=== PATIENT | female | born 1960 | race Caucasian/White ===

== ENCOUNTER 2023-09-19 19:14 | Observation (INO) | payer MEDICARE, OTHER ==
[~2023-09-19] VITALS: Ht 167.6 cm; Wt 75.8 kg
[2023-09-19 19:48] LABS: Source, Urine Clean Catch
[2023-09-19 19:57] LABS: Bilirubin, Urine Neg (Neg); Blood, Urine Neg (Neg); Glucose Qualitative, Urine Neg (Neg); Ketones, Urine Neg (Neg); Leukocyte Esterase, Urine Neg (Neg); Nitrite, Urine Neg (Neg); Protein, Urine 1+ (Neg); Urobilinogen, Urine NORM (Normal)
[2023-09-19 19:59] LABS: Appearance, Urine Clear (Clear); Color, Urine Pale Yellow (P-Yellow)
[2023-09-19 20:07] LABS: BASOPHILS PERCENT AUTO 1 % (0-2); EOSINOPHILS ABSOLUTE AUTO 0.12 K/mm3 (0.00-0.68); EOSINOPHILS PERCENT AUTO 1 % (0-6); Hematocrit 45.5 % (33.0-51.0); Hemoglobin 15.9 g/dL (11.5-16.0); IMMATURE GRAN ABSOLUTE AUTO 0.06 K/mm3 (0.00-0.10); IMMATURE GRAN PERCENT AUTO 0 % (0-1); LYMPHOCYTES ABSOLUTE AUTO 6.18 K/mm3 (0.84-5.20); LYMPHOCYTES PERCENT AUTO 34 % (21-46); MONOCYTES ABSOLUTE AUTO 1.06 K/mm3 (0.16-1.47); MONOCYTES PERCENT AUTO 6 % (4-13); Mean Corpuscular HGB 30.9 pg (26.0-34.0); Mean Corpuscular HGB Conc 34.9 g/dL (31.5-36.5); Mean Corpuscular Volume 88 fL (80-100); Mean Platelet Volume 9.5 fL (9.1-12.4); NEUTROPHILS ABSOLUTE AUTO 10.53 K/mm3 (1.96-9.15); NEUTROPHILS PERCENT AUTO 58 % (41-73); Platelet Count 382 K/mm3 (150-400); RDW Coefficient Variation 12.9 % (11.7-14.2); RDW Standard Deviation 42.5 fL (35.1-46.3); Red Blood Cell Count 5.15 M/mm3 (3.80-5.20); White Blood Cell Count 18.05 K/mm3 (4.00-11.30)
[2023-09-19 20:27] LABS: U Amphetamine Screen Not Detected; U Barbituate Screen Not Detected; U Benzodiazapine Screen Not Detected; U Buprenorphine Screen Not Detected; U Cannabinoids Screen DETECTED; U Cocaine Screen Not Detected; U Methadone Screen Not Detected; U Methamphetamine Screen Not Detected; U Opiates Screen Not Detected; U Oxycodone Screen Not Detected; U Phencyclidine Screen Not Detected
[2023-09-19 20:33] LABS: Ethanol (Alcohol), Blood, Med 289 mg/dL; Salicylate 7.1 mg/dL (2.8-20.0)
[2023-09-19 20:34] LABS: Acetaminophen, Random <2.0 ug/mL (10.0-30.0); Albumin, Blood 4.1 g/dL (3.4-5.0); Bilirubin, Total 0.3 mg/dL (0.1-1.0); Bun/Creatinine Ratio 29.6 (12.0-20.0); Calcium, Blood 9.5 mg/dL (8.5-10.1); Creatinine, Blood 0.58 mg/dL (0.40-1.00); Total Protein, Blood 8.1 g/dL (6.4-8.2)
[2023-09-19 20:56] LABS: Influenza A, PCR NEGATIVE (NEGATIVE); Influenza B, PCR NEGATIVE (NEGATIVE); Resp Syncytial Virus, PCR NEGATIVE (NEGATIVE); SARS-Cov-2 (COVID-19) PCR, MMC NEGATIVE (NEGATIVE)
[2023-09-19] MEDS ORDERED: TRAZ50 PO (21:00)
[2023-09-19] MEDS ORDERED: LORazepam 1 MG Tab PO ONE (21:50)
[2023-09-19] MEDS ORDERED: LORazepam 2 MG/ML 1ML Injection IV ONE (22:30)
[2023-09-19] MEDS ORDERED: Haloperidol Lactate Inj. 5 MG/ML Injection IM ONE (22:30)
== END 2023-09-20 06:49 | disposition home or self-care (01) ==
LOC: ER 19:14 → EOR 19:15
PROVIDERS: Physician Assistant; ADMIT Student in an Organized Health Care Education/Training Program
DX: R45.851 Suicidal ideations (principal); F10.129 Alcohol abuse with intoxication, unspecified; Y90.8 Blood alcohol level of 240 mg/100 ml or more; D72.829 Elevated white blood cell count, unspecified; F41.9 Anxiety disorder, unspecified
CPT/HCPCS: 0241U; 80053; 85025; 96372; 99285-25; A9270; G0378; G0480; J1630

== ENCOUNTER 2023-09-28 14:44 | Observation (INO) | payer MEDICARE, OTHER ==
[~2023-09-28] VITALS: Ht 167.6 cm; Wt 75.3 kg
[~2023-09-28 14:44] MED LIST: TRAZ50 PO
[2023-09-28 16:04] LABS: BASOPHILS ABSOLUTE AUTO 0.12 K/mm3 (0.00-0.23); BASOPHILS PERCENT AUTO 1 % (0-2); EOSINOPHILS ABSOLUTE AUTO 0.22 K/mm3 (0.00-0.68); EOSINOPHILS PERCENT AUTO 2 % (0-6); Hematocrit 48.1 % (33.0-51.0); Hemoglobin 16.3 g/dL (11.5-16.0); IMMATURE GRAN ABSOLUTE AUTO 0.03 K/mm3 (0.00-0.10); IMMATURE GRAN PERCENT AUTO 0 % (0-1); LYMPHOCYTES ABSOLUTE AUTO 4.23 K/mm3 (0.84-5.20); LYMPHOCYTES PERCENT AUTO 35 % (21-46); MONOCYTES ABSOLUTE AUTO 0.63 K/mm3 (0.16-1.47); MONOCYTES PERCENT AUTO 5 % (4-13); Mean Corpuscular HGB Conc 33.9 g/dL (31.5-36.5); Mean Corpuscular Volume 92 fL (80-100); Mean Platelet Volume 9.5 fL (9.1-12.4); NEUTROPHILS ABSOLUTE AUTO 6.96 K/mm3 (1.96-9.15); NEUTROPHILS PERCENT AUTO 57 % (41-73); Platelet Count 250 K/mm3 (150-400); RDW Coefficient Variation 12.5 % (11.7-14.2); RDW Standard Deviation 41.9 fL (35.1-46.3); Red Blood Cell Count 5.25 M/mm3 (3.80-5.20); White Blood Cell Count 12.19 K/mm3 (4.00-11.30)
[2023-09-28 16:42] LABS: Ethanol (Alcohol), Blood, Med 274 mg/dL; Salicylate 5.3 mg/dL (2.8-20.0)
[2023-09-28 16:47] LABS: Acetaminophen, Random <2.0 ug/mL (10.0-30.0); Alanine Aminotransfer (ALT/SGP 61 U/L (12-78); Albumin, Blood 3.6 g/dL (3.4-5.0); Alk Phos 129 U/L (50-136); Anion Gap 17 mmol/L (3-11); Aspartate Aminotrans (AST/SGOT 67 U/L (12-37); Bilirubin, Total 0.3 mg/dL (0.1-1.0); Blood Urea Nitrogen 20 mg/dL (8-24); Bun/Creatinine Ratio 31.9 (12.0-20.0); CO2, Blood 16 mmol/L (21-32); Calcium, Blood 8.6 mg/dL (8.5-10.1); Chloride, Blood 112 mmol/L (98-108); Creatinine, Blood 0.63 mg/dL (0.40-1.00); Globulin, Blood 3.7 g/dL (2.2-4.0); Glomerular Filtration Rate 98 (60-); Glucose, Blood 113 mg/dL (70-99); Potassium, Blood 3.9 mmol/L (3.5-5.5); Sodium, Blood 141 mmol/L (136-145); Total Protein, Blood 7.3 g/dL (6.4-8.2)
[2023-09-28 17:55] LABS: Source, Urine Clean Catch
[2023-09-28 17:57] LABS: Appearance, Urine Hazy (Clear); Bilirubin, Urine Neg (Neg); Blood, Urine 1+ (Neg); Color, Urine Yellow (P-Yellow); Glucose Qualitative, Urine Neg (Neg); Ketones, Urine 3+ (Neg); Leukocyte Esterase, Urine Neg (Neg); Nitrite, Urine Neg (Neg); Protein, Urine 2+ (Neg); Urobilinogen, Urine NORM (Normal)
[2023-09-28 18:09] LABS: Amorphous Light (0-Heavy); Bacteria Few /hpf; Hyaline Casts 0-2 /lpf (0-2); Squamous Epithelial Cells Few /hpf (Few); White Blood Cells, Urine 0-2 /hpf (0-5)
[2023-09-28 18:11] LABS: U Amphetamine Screen Not Detected; U Barbituate Screen Not Detected; U Benzodiazapine Screen Not Detected; U Buprenorphine Screen Not Detected; U Cannabinoids Screen DETECTED; U Cocaine Screen Not Detected; U Methadone Screen Not Detected; U Methamphetamine Screen Not Detected; U Opiates Screen Not Detected; U Oxycodone Screen Not Detected; U Phencyclidine Screen Not Detected
[2023-09-28] MEDS ORDERED: Melatonin 5 MG Tablet PO SCH (21:00)
[2023-09-28] MEDS ORDERED: Ondansetron 4 MG SoluTab SL ONE (22:25)
== END 2023-09-28 22:54 | disposition home or self-care (01) ==
LOC: ER 14:44 → EOR 14:45
PROVIDERS: Student in an Organized Health Care Education/Training Program; ADMIT Emergency Medicine
DX: F10.90 Alcohol use, unspecified, uncomplicated (principal); R45.851 Suicidal ideations; I10 Essential (primary) hypertension; Z88.0 Allergy status to penicillin
CPT/HCPCS: 76801; 80053; 81001; 81025; 84702; 85025; 86592; 93005; 93010; 99285-25; A9270; G0378; G0480

== ENCOUNTER 2024-01-30 16:49 | Observation (INO) | payer MEDICARE, OTHER ==
[~2024-01-30] VITALS: Ht 167.6 cm; Wt 74.8 kg
[~2024-01-30 16:49] MED LIST changes: +CEPHALEXIN500 MG PO; +SULTRIDS PO
[2024-01-30] MEDS ORDERED: IBUP200 (17:09)
[2024-01-30] MEDS ORDERED: TRAZ50 (17:09)
[2024-01-30] MEDS ORDERED: Aspirin 325 MG Tab PO ONE (17:50)
[2024-01-30 17:51] LABS: Hematocrit 33.9 % (33.0-51.0); Hemoglobin 10.8 g/dL (11.5-16.0); Mean Corpuscular HGB 26.6 pg (26.0-34.0); Mean Corpuscular HGB Conc 31.9 g/dL (31.5-36.5); Mean Corpuscular Volume 84 fL (80-100); Mean Platelet Volume 10.1 fL (9.1-12.4); Platelet Count 330 K/mm3 (150-400); RDW Coefficient Variation 14.1 % (11.7-14.2); RDW Standard Deviation 43.2 fL (35.1-46.3); Red Blood Cell Count 4.06 M/mm3 (3.80-5.20); White Blood Cell Count 9.63 K/mm3 (4.00-11.30)
[2024-01-30 18:14] LABS: BASOPHILS PERCENT MAN 0 % (0-2); EOSINOPHILS ABSOLUTE MAN 0.19 K/mm3 (0.00-0.68); EOSINOPHILS PERCENT MAN 2 % (0-6); LYMPHOCYTES ABSOLUTE MAN 3.94 K/mm3 (0.84-5.20); LYMPHOCYTES PERCENT MAN 41 % (21-46); MONOCYTES ABSOLUTE MAN 0.67 K/mm3 (0.16-1.47); MONOCYTES PERCENT MAN 7 % (4-13); NEUTROPHILS ABSOLUTE MAN 4.81 K/mm3 (1.96-9.15); SEG NEUTROPHILS PERCENT MAN 50 % (41-73); TOTAL CELLS COUNTED 100
[2024-01-30 18:16] LABS: Albumin, Blood 3.5 g/dL (3.4-5.0); Bilirubin, Total 0.2 mg/dL (0.1-1.0); Bun/Creatinine Ratio 26.7 (12.0-20.0); Calcium, Blood 8.9 mg/dL (8.5-10.1); Creatinine, Blood 0.75 mg/dL (0.40-1.00); Globulin, Blood 3.6 g/dL (2.2-4.0); Total Protein, Blood 7.1 g/dL (6.4-8.2)
[2024-01-30] MEDS ORDERED: NS 1,000 ML IV SCH (19:25)
[2024-01-30] MEDS ORDERED: Acetaminophen 325 MG TABLET PO PRN (19:25)
[2024-01-30] MEDS ORDERED: Ondansetron HCl 2 MG / ML 2ML Vial IV PRN (19:25)
[2024-01-30] MEDS ORDERED: TraZODone HCl 50 MG Tab PO SCH (21:00)
[2024-01-30 21:19] VITALS: BP 146/75
[2024-01-31 03:53] VITALS: BP 114/60
--- NOTE | 2024-01-31 07:12 | NUR ---
PATIENT'S SYMPTOMS CONTINUE TO RESOLVE. ABLE TO WALK WITH JUST SBA TO BR. SPEECH IS CLEAR.IV INFUSING AT 100/HR. TELE SR 67.
[2024-01-31 07:27] VITALS: BP 143/64
[2024-01-31] MEDS ORDERED: Atorvastatin 40 MG Tab PO SCH (09:00)
[2024-01-31] MEDS ORDERED: Enoxaparin 40 MG/0.4 ML SYR SC SCH (09:00)
[2024-01-31] MEDS ORDERED: Aspirin 81 MG Chew PO SCH (09:00)
--- NOTE | 2024-01-31 11:13 | NUR ---
ECHO DONE, MRI DONE, DR DEWITT ROUNDED, SHE WILL REVIEW THE RESULTS AND THEN REPORT BACK TO THE PATIENT, VSS, CALL LIGHT WITH IN REACH, NO COMPLAINTS OR CONCERNS WITH PATIENT, PLEASANT TO CARE
[2024-01-31] MEDS ORDERED: ASPI81CH PO (15:01)
[2024-01-31] MEDS ORDERED: ATOR40TA PO (15:02)
[2024-01-31] MEDS ORDERED: LOSA50 PO (15:03)
[2024-01-31 15:06] VITALS: BP 141/67
--- NOTE | 2024-01-31 15:26 | NUR ---
DISCHARGE INSTRUCTIONS GIVEN TO PATIENT, PATIENT STATED UNDERSTANDING OF INSTRUCTIONS, MEDICATIONS, AND FOLLOW UP NEEDS ONCE DISCHARGED, [facility] TO BE HERE AT 1600, PATIENT DENIED FURTHER QUESTIONS, PLEASANT TO CARE
== END 2024-01-31 16:09 | disposition home or self-care (01) ==
LOC: ER 16:49 → MEDS 16:50 → ERHOLD 16:50 → MEDS 21:28
PROVIDERS: Physician Assistant; ADMIT Family Medicine
DX: I63.9 Cerebral infarction, unspecified (principal); E78.5 Hyperlipidemia, unspecified; I10 Essential (primary) hypertension; F32.9 Major depressive disorder, single episode, unspecified; Z88.0 Allergy status to penicillin
CPT/HCPCS: 70450; 70496; 70498; 70551; 80053; 82947; 83036; 85025; 93005; 93010; 93306; 96360; 96372; 99285-25; A9270; G0378; J1650; J7030; Q9967

== ENCOUNTER 2024-07-23 12:04 | Emergency (ER) | payer MEDICARE, OTHER ==
[~2024-07-23] VITALS: Ht 162.6 cm; Wt 68.0 kg
[~2024-07-23 12:04] MED LIST changes: +ASPI81CH PO; +ATOR40TA PO; +IBUP200; +LOSA50 PO; +TRAZ50
[2024-07-23] MEDS ORDERED: Voltaren100 GM TOP (13:01)
[2024-07-23] MEDS ORDERED: TIZA4 PO (13:01)
== END 2024-07-23 13:00 | disposition home or self-care (01) ==
LOC: ER 12:04
DX: M54.6 Pain in thoracic spine (principal); I10 Essential (primary) hypertension; Z88.0 Allergy status to penicillin; Z79.82 Long term (current) use of aspirin; Z79.899 Other long term (current) drug therapy; Z59.89 Other problems related to housing and economic circumstances
CPT/HCPCS: 99283

== ENCOUNTER → 2024-12-20 | Outpatient (CLI) | payer MEDICARE, OTHER ==
[~2024-12-20] MED LIST changes: +Atarax10 MG PO; +DIABETIC MED PO; +FLUO10 PO; +IMITREX50 MG PO; +METF500 PO; +PROP10 PO; +TIZA4 PO; -TRAZ50; +Voltaren100 GM TOP
== END ==
LOC: LAB 17:00 → LAB SHORT 17:00
DX: R30.0 Dysuria (principal)
CPT/HCPCS: 87086